=== PATIENT | male | born 1965 | race Caucasian/White ===

== ENCOUNTER 2018-04-11 18:16 | Emergency (ER) | payer MEDICAID, MEDICARE, OTHER ==
[~2018-04-11] VITALS: Ht 167.6 cm; Wt 72.9 kg
[2018-04-11] MEDS ORDERED: ALBUTEROL/IPRATROPIUM 2.5MG/0.5MG, 3 ML ONE (18:47)
[2018-04-11] MEDS: ALBUTEROL/IPRATROPIUM 2.5MG/0.5MG, 3 ML NPPB SCH ×2 (18:54→19:33)
[2018-04-11] MEDS ORDERED: LORA0.5T PO (18:59)
[2018-04-11] MEDS ORDERED: LOVA40TA2 PO (18:59)
[2018-04-11] MEDS ORDERED: METO25TA35 PO (18:59)
[2018-04-11] MEDS ORDERED: AMLO10TA2 PO (18:59)
[2018-04-11] MEDS ORDERED: HYDR25TA11 PO (18:59)
[2018-04-11] MEDS ORDERED: CLOP75TA52 PO (18:59)
[2018-04-11] MEDS ORDERED: DULERA (19:01)
[2018-04-11] MEDS ORDERED: XOPENEX (19:01)
[2018-04-11 20:12] VITALS: BP 114/71
== END 2018-04-11 20:24 | disposition home or self-care (01) ==
LOC: ED 20:17
DX: J98.01 Acute bronchospasm (principal); J00 Acute nasopharyngitis [common cold]; J45.909 Unspecified asthma, uncomplicated
CPT/HCPCS: 71046; 93005; 94640; 99284; J7620